=== PATIENT | female | born 1965 | race American Indian/Alaskan Native ===

== ENCOUNTER 2017-10-25 19:02 | Emergency (ER) | payer OTHER ==
[2017-10-25] MEDS ORDERED: NACL 0.9% 1000 ML 1,000 ML IV ONE ×2 (19:23→23:12)
[2017-10-25] MEDS ORDERED: ZOFRAN IV ONE ×2 (19:24→23:12)
[2017-10-25 19:36] LABS: Hematocrit 45.4 % (30.3-42.9); Mean Corpuscular HGB Conc 33 % (30-34); Mean Corpuscular Hemoglobin 29 pg (28-32); Mean Corpuscular Volume 87 fl (79-97); Platelet Count 273 K/mm3 (140-440); White Blood Count 8.4 K/mm3 (4.5-11.0)
[2017-10-25 19:53] LABS: Calcium 8.9 mg/dL (8.4-10.2); Chloride 102.8 mmol/L (98-107); Potassium 3.6 mmol/L (3.6-5.0)
[2017-10-25 20:05] LABS: Blastocytes % (Manual) 0 %
[2017-10-25 20:06] LABS: Anisocytosis 1+; Basophils % (Manual) 0 % (0.0-1.8); Eosinophils % (Manual) 0 % (0.0-4.3)
[2017-10-25 20:07] LABS: Diff Status Complete
[2017-10-25 22:08] LABS: Bacteria,Urine 1+ /HPF (Negative); Bilirubin,Urine NEG (Negative); Blood,Urine SM (Negative); Ketones,Urine TR mg/dL (Negative); Leukocyte Esterase,Urine NEG (Negative); Mucus,Urine 2+ /HPF; Nitrite,Urine NEG (Negative); Urobilinogen,Urine < 2.0 mg/dL (<2.0)
[2017-10-25] MEDS ORDERED: TORADOL IV ONE (23:12)
[2017-10-25] MEDS ORDERED: MORPHINE IV ONE (23:12)
--- NOTE | 2017-10-25 23:18 | Emergency Department Report ---
ED N/V/D HPI - General Chief complaint: Nausea/Vomiting/Diarrhea Stated complaint: VOMITING/DIARRHEA Time Seen by Provider: 10/25/17 23:08 Source: patient Mode of arrival: Ambulatory Limitations: No Limitations - History of Present Illness Initial comments: 52 yo female with n/v/diarrhea which began today. She had 3-4 episodes of vomiting and diarrhea at the same time. pt ate pork chops and vegetable medley last night cooked by her significant other and herself. She has a h/o LAP Band few years ago. MD complaint: nausea, vomiting, diarrhea, abdominal pain -: Sudden Description of Vomiting: food contents Description of Diarrhea: water Associated Abdominal Pain: Yes Location: diffuse Radiation: none Severity: moderate Pain Scale: 6 Quality: cramping Consistency: intermittent, now resolved Improves with: vomiting Worsens with: none Context: possible food poisoning, history of abdominal surg Associated Symptoms: nausea/vomiting - Related Data Home Medications Medication Instructions Recorded Confirmed Last Taken amLODIPine 10 mg PO DAILY 10/25/17 10/25/17 Unknown Previous Rx's Medication Instructions Recorded Last Taken Type Ondansetron [Zofran TAB] 8 mg PO Q8HR PRN #9 tablet 10/26/17 Unknown Rx metroNIDAZOLE [Flagyl] 500 mg PO Q8HR #21 tablet 10/26/17 Unknown Rx Allergies Allergy/AdvReac Type Severity Reaction Status Date / Time No Known Allergies Allergy Verified 10/25/17 23:14 ED Review of Systems ROS: Stated complaint: VOMITING/DIARRHEA Other details as noted in HPI Constitutional: denies: chills, fever Eyes: denies: eye pain, eye discharge, vision change ENT: denies: ear pain, throat pain Respiratory: denies: cough, shortness of breath, wheezing Cardiovascular: denies: chest pain, palpitations Endocrine: no symptoms reported Gastrointestinal: abdominal pain, nausea, diarrhea Genitourinary: denies: urgency, dysuria, discharge Musculoskeletal: denies: back pain, joint swelling, arthralgia Skin: denies: rash, lesions Neurological: denies: headache, weakness, paresthesias Psychiatric: denies: anxiety, depression Hematological/Lymphatic: denies: easy bleeding, easy bruising ED Past Medical Hx - Past Medical History Hx Hypertension: Yes - Surgical History Additional Surgical History: , LAP-BAND - Social History Smoking Status: Never Smoker Substance Use Type: None - Medications Home Medications: Home Medications Medication Instructions Recorded Confirmed Last Taken Type amLODIPine 10 mg PO DAILY 10/25/17 10/25/17 Unknown History Ondansetron [Zofran TAB] 8 mg PO Q8HR PRN #9 tablet 10/26/17 Unknown Rx metroNIDAZOLE [Flagyl] 500 mg PO Q8HR #21 tablet 10/26/17 Unknown Rx ED Physical Exam - General Limitations: No Limitations General appearance: alert, in no apparent distress - Head Head exam: Present: atraumatic, normocephalic - Eye Eye exam: Present: normal appearance, EOMI - ENT ENT exam: Present: mucous membranes moist - Neck Neck exam: Present: normal inspection, full ROM - Respiratory Respiratory exam: Present: normal lung sounds bilaterally. Absent: respiratory distress - Cardiovascular Cardiovascular Exam: Present: regular rate, normal rhythm. Absent: systolic murmur, diastolic murmur, rubs, gallop - GI/Abdominal GI/Abdominal exam: Present: soft, normal bowel sounds, hyperactive bowel sounds , mass (ruq over lap band). Absent: distended, tenderness, guarding, rebound, rigid - Rectal Rectal exam: Present: deferred - Extremities Exam Extremities exam: Present: normal inspection, full ROM - Back Exam Back exam: Present: normal inspection, full ROM - Neurological Exam Neurological exam: Present: alert, oriented X3, CN II-XII intact (grossly examined) - Psychiatric Psychiatric exam: Present: normal affect, normal mood - Skin Skin exam: Present: warm, dry, intact, normal color. Absent: rash ED Course Vital Signs 10/25/17 10/25/17 10/25/17 19:15 21:46 23:35 Temperature 99.6 F 99 F Pulse Rate 112 H 90 Respiratory 16 16 Rate Blood Pressure 146/105 Blood Pressure 178/106 [Right] O2 Sat by Pulse 98 97 Oximetry 10/26/17 10/26/17 00:05 00:35 Temperature Pulse Rate 89 Respiratory 16 16 Rate Blood Pressure Blood Pressure 143/88 [Right] O2 Sat by Pulse 100 Oximetry ED Medical Decision Making - Lab Data Result diagrams: 10/25/17 19:24 10/25/17 19:23 - Radiology Data Radiology results: report reviewed (ACUTE ABD SERIES: ENTEROCOLITIS) - Medical Decision Making HER LABS ARE RELATIVELY NORMAL AND ACUTE ABDOMINAL SERIES IS NEGATIVE FOR BOWEL OBSTRUCTION NOMAN WERNER D/C HER HOME WITH FOLLOW UP WITH HER DR. - Differential Diagnosis BOWEL OBSTRUCTION, GASTROENTERITIS, APPENDICITIS, COLITIS Critical care attestation.: If time is entered above; I have spent that time in minutes in the direct care of this critically ill patient, excluding procedure time. ED Disposition Clinical Impression: Enterocolitis Disposition: TO HOME OR SELFCARE Is pt being admited?: No Does the pt Need Aspirin: No Condition: Stable Instructions: Acute Diarrhea (ED), Acute Nausea and Vomiting (ED), Infectious Colitis (ED) Additional Instructions: RETURN TO THE ED FOR ANY WORSENING OF YOUR SYMPTOMS, PLEASE RETURN IN 6 HOURS FOR AN ABDOMEN CHECK. SEE YOUR DR IN 2 DAYS FOR A FOLLOW UP. PLEASE DRINK PLENTY OF FLUIDS Prescriptions: metroNIDAZOLE [Flagyl] 500 mg PO Q8HR #21 tablet Ondansetron [Zofran TAB] 8 mg PO Q8HR PRN #9 tablet PRN Reason: Nausea And Vomiting Referrals: PRIMARY CARE, [Primary Care Provider] - 3-5 Days Time of Disposition: 01:16
--- NOTE | 2017-10-25 23:46 | XRay Report ---
FINAL REPORT PROCEDURE: XR ABD SERIES W CXR 1V TECHNIQUE: Abdominal series complete, including supine and upright AP views of the abdomen and frontal chest. HISTORY: abd pain,n,v,diarrhea h/o lap band COMPARISON: No prior studies are available for comparison. FINDINGS: Heart: Normal. Mediastinum/Vessels: Normal. Lungs/Pleural space: Normal. Bowel gas pattern: Intestinal gas is distributed predominantly in nondistended colon. Air-fluid levels are noted in the colon... Masses or calcifications: None. Bony structures: No acute osseous abnormality. Other: No free intraperitoneal air. IMPRESSION: Air-fluid levels in nondistended colon most likely represent enterocolitis..
[2017-10-25 23:47] LABS: Alanine Aminotransferase 14 units/L (7-56); Albumin 4.2 g/dL (3.9-5); Albumin/Globulin Ratio 1.4 %; Alkaline Phosphatase 74 units/L (35-129); Bilirubin,Direct < 0.2 mg/dL (0-0.2); Bilirubin,Indirect 0.2 mg/dL; Lipase 24 units/L (13-60); Total Protein 7.1 g/dL (6.3-8.2)
[2017-10-26 00:36] VITALS: BP 143/88
== END 2017-10-26 01:45 | disposition home or self-care (01) ==
LOC: ED 19:02
DX: K52.9 Noninfective gastroenteritis and colitis, unspecified (principal); I10 Essential (primary) hypertension
CPT/HCPCS: 36415; 74022; 80048; 80074; 81001; 83690; 84703; 85007; 85025; 96361; 96374; 96375; 96376; 99284; J1885; J2270; J2405; J7030

== ENCOUNTER 2019-01-13 14:12 | Emergency (ER) | payer OTHER ==
[2019-01-13 14:24] VITALS: BP 190/118
[2019-01-13] MEDS ORDERED: ASPIRIN PO ONE (15:52)
--- NOTE | 2019-01-13 15:54 | Emergency Department Report ---
Blank Doc - Documentation Documentation: This is a 53 y.o. female that presents to the ER with chest pain. Patient sta jesus she woke up around 1100 this morning with a severe headache, dizziness, and chest pain. She took blood pressure medication and then came here for evaluation. States headache for several weeks which increased in intensity today. She reports chest pain to substernal chest, sharp pain that is intermittent. Ordered: labs Fast track for further evaluation.
[2019-01-13 16:09] LABS: Eosinophils # (Auto) 0.1 K/mm3 (0.0-0.4); Eosinophils % (Auto) 0.8 % (0.0-4.3); Monocytes # (Auto) 0.6 K/mm3 (0.0-0.8); Monocytes % (Auto) 8.8 % (0.0-7.3)
[2019-01-13 16:24] LABS: BUN/Creatinine Ratio 14; Blood Urea Nitrogen 15 mg/dL (7-17); Calcium 8.9 mg/dL (8.4-10.2); Hemolysis Index 14
[2019-01-13 16:33] LABS: Hemoglobin 14.5 gm/dl (10.1-14.3); Red Blood Count 4.98 M/mm3 (3.65-5.03)
[2019-01-13 16:34] LABS: Basophils % (Auto) 0.5 % (0.0-1.8); Hematocrit 43.8 % (30.3-42.9); Lymphocytes % (Auto) 28.9 % (13.4-35.0); Mean Corpuscular HGB Conc 33 % (30-34); Mean Corpuscular Volume 88 fl (79-97); Platelet Count 317 K/mm3 (140-440); Red Cell Distribution Width 15.8 % (13.2-15.2)
--- NOTE | 2019-01-13 18:07 | Emergency Department Report ---
ED General Adult HPI - General Chief complaint: Chest Pain Stated complaint: DIZZY/CHEST PAIN Time Seen by Provider: 01/13/19 15:50 Source: patient Mode of arrival: Ambulatory Limitations: No Limitations - History of Present Illness Initial comments: 53-year-old -Tong[place] female with past medical history of hypertension and obesity smgy department complaining of episodic chest pain associated with shortness of breath and occasional presyncope. Reports no coughing, no congestion, no hemoptysis, no hematemesis, no hematochezia. She reports no syncope. Has been having some episodes of spiking in her blood pressure ranging anywhere from the 180s to the 200s over the high 90s to the low all 110s. This most recent chest pain episode a reemerge around 11 AM today and has been coming off and on since that time, chest pain, has has improved since the onset, but the headache continues to linger. The headache is dull, throbbing, primarily to the occipitoparietal region on the right side associated with occasional blurred vision. Severity scale (0 -10): 5 Associated Symptoms: chest pain. denies: confusion, cough, fever/chills, loss of appetite, nausea/vomiting, seizure, shortness of breath Treatments Prior to Arrival: none - Related Data Home Medications Medication Instructions Recorded Confirmed Last Taken amLODIPine 10 mg PO DAILY 10/25/17 10/25/17 Unknown Previous Rx's Medication Instructions Recorded Last Taken Type Ondansetron (Nf) [Zofran TAB] 8 mg PO Q8HR PRN #9 tablet 10/26/17 Unknown Rx metroNIDAZOLE [Flagyl] 500 mg PO Q8HR #21 tablet 10/26/17 Unknown Rx Ketorolac [Toradol] 10 mg PO Q6H PRN #15 tablet 01/13/19 Unknown Rx Allergies Allergy/AdvReac Type Severity Reaction Status Date / Time No Known Allergies Allergy Verified 01/13/19 15:51 ED Review of Systems ROS: Stated complaint: DIZZY/CHEST PAIN Other details as noted in HPI Constitutional: denies: chills, fever Eyes: denies: eye pain, eye discharge, vision change ENT: denies: ear pain, throat pain Respiratory: denies: cough, shortness of breath, wheezing Cardiovascular: denies: chest pain, palpitations Endocrine: no symptoms reported Gastrointestinal: denies: abdominal pain, nausea, diarrhea Genitourinary: denies: urgency, dysuria, discharge Musculoskeletal: denies: back pain, joint swelling, arthralgia Skin: denies: rash, lesions Neurological: denies: headache, weakness, paresthesias Psychiatric: denies: anxiety, depression Hematological/Lymphatic: denies: easy bleeding, easy bruising ED Past Medical Hx - Past Medical History Previous Medical History?: Yes Hx Hypertension: Yes - Surgical History Past Surgical History?: Yes Additional Surgical History: , LAP-BAND - Social History Smoking Status: Current Every Day Smoker Substance Use Type: Alcohol - Medications Home Medications: Home Medications Medication Instructions Recorded Confirmed Last Taken Type amLODIPine 10 mg PO DAILY 10/25/17 10/25/17 Unknown History Ondansetron (Nf) [Zofran TAB] 8 mg PO Q8HR PRN #9 tablet 10/26/17 Unknown Rx metroNIDAZOLE [Flagyl] 500 mg PO Q8HR #21 tablet 10/26/17 Unknown Rx Ketorolac [Toradol] 10 mg PO Q6H PRN #15 tablet 01/13/19 Unknown Rx ED Physical Exam - General Limitations: No Limitations General appearance: alert, in no apparent distress - Head Head exam: Present: atraumatic, normocephalic - Eye Eye exam: Present: normal appearance, PERRL, EOMI Pupils: Present: normal accommodation - ENT ENT exam: Present: normal exam, normal orophraynx, mucous membranes moist, TM's normal bilaterally - Neck Neck exam: Present: normal inspection, full ROM. Absent: tenderness, meningismus, lymphadenopathy, thyromegaly - Respiratory Respiratory exam: Present: normal lung sounds bilaterally. Absent: respiratory distress, wheezes, rales, rhonchi, chest wall tenderness, accessory muscle use, decreased breath sounds, prolonged expiratory - Cardiovascular Cardiovascular Exam: Present: regular rate, normal rhythm, normal heart sounds. Absent: systolic murmur, diastolic murmur, rubs, gallop - GI/Abdominal GI/Abdominal exam: Present: soft, normal bowel sounds. Absent: distended, tenderness, guarding, hyperactive bowel sounds, hypoactive bowel sounds - Extremities Exam Extremities exam: Present: normal inspection, full ROM, normal capillary refill - Back Exam Back exam: Present: normal inspection - Neurological Exam Neurological exam: Present: alert, oriented X3, CN II-XII intact, other ( rhomberg results in swaying. ) - Psychiatric Psychiatric exam: Present: normal affect, normal mood - Skin Skin exam: Present: warm, dry, intact, normal color. Absent: rash ED Course Vital Signs 01/13/19 14:22 Temperature 98.2 F Pulse Rate 89 Respiratory 14 Rate Blood Pressure 190/118 [Right] O2 Sat by Pulse 98 Oximetry ED Medical Decision Making - Lab Data Result diagrams: 01/13/19 15:56 01/13/19 15:56 Critical care attestation.: If time is entered above; I have spent that time in minutes in the direct care of this critically ill patient, excluding procedure time. ED Disposition Clinical Impression: Chest pain, Cephalgia Disposition: - TO HOME OR SELFCARE Is pt being admited?: No Does the pt Need Aspirin: No Condition: Stable Instructions: Chest Pain (ED), Acute Headache (ED) Referrals: GUILLERMINA RIVERO MD [Primary Care Provider] - 3-5 Days [facility] [Provider Group] - 3-5 Days
--- NOTE | 2019-01-13 18:14 | XRay Report ---
FINAL REPORT EXAM: XR CHEST ROUTINE 2V HISTORY: chest pain TECHNIQUE: PA and lateral views of the chest PRIORS: CXR 10/25/2017 FINDINGS: Lines, tubes, and devices: N/A Lungs and pleura: Trachea is normal in position. Lungs are clear of infiltrate, pleural effusion, va scular congestion, or pneumothorax. No change. Cardiomediastinal silhouette: Cardiac and mediastinal silhouettes are unremarkable. Other: Bony structures are intact. IMPRESSION: No acute cardiopulmonary process seen. No change.
--- NOTE | 2019-01-13 19:17 | Cat Scan Report ---
FINAL REPORT EXAM: CT HEAD/BRAIN WO CON HISTORY: headache TECHNIQUE: Standard unenhanced CT of the head at 5.0 millimeter axial increments. PRIORS: None. FINDINGS: The ventricular system is normal in size and configuration. There is no evidence for parenchymal volu me loss. There is no evidence for mass lesion, mass effect, midline shift, acute intracranial hemorrhage, or a cute ischemia/ infarction. No evidence for acute skull fracture is seen. No abnormality in the overlying scalp soft tissues is seen. Visualized paranasal sinuses are clear. IMPRESSION: Negative CT of the head. No acute intracranial process noted.
[2019-01-13] MEDS ORDERED: NORCO 5/325 PO STA (21:25)
== END 2019-01-13 21:46 | disposition home or self-care (01) ==
LOC: ED 14:12
DX: R07.89 Other chest pain (principal); R51 Headache; I10 Essential (primary) hypertension; F17.200 Nicotine dependence, unspecified, uncomplicated; E66.9 Obesity, unspecified; Z68.33 Body mass index [BMI] 33.0-33.9, adult
CPT/HCPCS: 36415; 70450; 71046; 80048; 84484; 85025; 93005; 93010; 99285

== ENCOUNTER 2019-05-07 08:35 | Outpatient (CLI) | payer OTHER ==
--- NOTE | 2019-05-07 10:07 | Mammography Report ---
Screening mammogram: Prior exams apparently exist but the patient is unclear of their location. There is a heterogeneously dense fibroglandular pattern. The breast pattern on the left is unremarkable. In the upper outer right breast there is some architectural changes on both projections. No definite mass. The findings are not otherwise remarkable. CAD used. Impression: Right breast asymmetry. Recommendation: If prior exams cannot be obtained I would recommend this patient either have tomomammogram of the right breast or spot compression imaging and possible ultrasound. BI-RADS CATEGORY: 0 = Needs additional imaging evaluation ACR BI-RADS MAMMOGRAPHIC CODES: 0 = Needs additional imaging evaluation; 1 = Negative; 2 = Benign; 3 = Probably benign; 4 = Suspicious; 5 = Malignant; 6 = Known biopsy-proven malignancy COMMENT: 1. Dense breast tissue, i.e., adenosis, fibrocystic changes, etc., may obscure an underlying neoplasm. 2. Approximately 10% of cancers are not detected with mammography. 3. A negative mammography report should not delay biopsy if a clinically suspicious mass is present.
== END 2019-05-07 08:36 | disposition home or self-care (01) ==
LOC: MAMMO 08:35
PROVIDERS: ATTEND Internal Medicine
DX: Z12.31 Encounter for screening mammogram for malignant neoplasm of breast (principal); I10 Essential (primary) hypertension
CPT/HCPCS: 77067

== ENCOUNTER 2019-10-23 02:06 | Emergency (ER) | payer OTHER ==
[2019-10-23 02:14] VITALS: BP 190/125
[2019-10-23] MEDS ORDERED: cloNIDine 0.2 MG TAB ONE (02:24)
[2019-10-23] MEDS ORDERED: cloNIDine 0.2 MG TAB PO ONE (02:24)
[2019-10-23 02:56] LABS: Basophils % (Auto) 0.3 % (0.0-1.8); Eosinophils # (Auto) 0.1 K/mm3 (0.0-0.4); Eosinophils % (Auto) 1.2 % (0.0-4.3); Hematocrit 48.3 % (30.3-42.9); Hemoglobin 15.7 gm/dl (10.1-14.3); Lymphocytes # (Auto) 2.4 K/mm3 (1.2-5.4); Lymphocytes % (Auto) 28.7 % (13.4-35.0); Mean Corpuscular HGB Conc 33 % (30-34); Mean Corpuscular Volume 87 fl (79-97); Monocytes % (Auto) 12.3 % (0.0-7.3); Platelet Count 448 K/mm3 (140-440); Red Blood Count 5.53 M/mm3 (3.65-5.03); Red Cell Distribution Width 16.1 % (13.2-15.2)
[2019-10-23 04:08] LABS: Alanine Aminotransferase 13 units/L (7-56); BUN/Creatinine Ratio 12; Blood Urea Nitrogen 13 mg/dL (7-17); Calcium 8.8 mg/dL (8.4-10.2); Hemolysis Index 3
[2019-10-23] MEDS ORDERED: SODIUM CHLORIDE 0.9% 1000 ML 1,000 ML ONE (04:08)
[2019-10-23] MEDS ORDERED: ONDANSETRON 4 MG/2 ML INJ ONE (04:08)
[2019-10-23] MEDS ORDERED: ONDANSETRON 4 MG/2 ML INJ IV ONE (04:13)
[2019-10-23] MEDS ORDERED: SODIUM CHLORIDE 0.9% 1000 ML 1,000 ML IV ONE (04:13)
--- NOTE | 2019-10-23 04:24 | Emergency Department Report ---
Vomiting/Diarrhea - HPI Chief Complaint: Nausea/Vomiting/Diarrhea Stated Complaint: UPSET STOMACH, DIARRHEA, SWEATS, LUMP ON RECTUM Time Seen by Provider: 10/23/19 03:08 Duration: 5 Days Severity: mild Nausea/Vomiting Severity: None Diarrhea Severity: Moderate Pain Location: Generalized Pain Severity: None Symptoms: Yes Watery Diarrhea, Yes Able to Tolerate Fluids, Yes Recent Unusual Foods, No Bloody diarrhea, No Fever, No Recent Untreated Water, No Recent use of Antibiotics, No Family w/ Similar Symptoms, No Contacts w/ Similar Symptoms, No Rash, No Hematuria, No Recent URI Symptoms Other History: This is a 54-year-old female who presents to ED complaining of na usea vomiting and diarrhea that started Saturday of last week. Patient states she is aware of eating any unusual foods. Patient also states that diarrhea is watery loose since of last week. Patient admits a history of hypertension currently on medication. She denies abdominal pain, fever, chills, chest pain or shortness of breath. Denies any medical history of hepatitis liver disease or kidney disease. ED Review of Systems ROS: Stated complaint: UPSET STOMACH, DIARRHEA, SWEATS, LUMP ON RECTUM Other details as noted in HPI Comment: All other systems reviewed and negative ED Past Medical Hx - Past Medical History Previous Medical History?: Yes Hx Hypertension: Yes - Surgical History Past Surgical History?: Yes Additional Surgical History: , LAP-BAND - Social History Smoking Status: Never Smoker Substance Use Type: None - Medications Home Medications: Home Medications Medication Instructions Recorded Confirmed Last Taken Type amLODIPine 10 mg PO DAILY 10/25/17 10/25/17 Unknown History Ondansetron (Nf) [Zofran TAB] 8 mg PO Q8HR PRN #9 tablet 10/26/17 Unknown Rx metroNIDAZOLE [Flagyl] 500 mg PO Q8HR #21 tablet 10/26/17 Unknown Rx Ketorolac [Toradol] 10 mg PO Q6H PRN #15 tablet 01/13/19 Unknown Rx Hydrocortisone [Anucort-HC SUPPOS] 25 mg RC BID #30 supp.rect 10/23/19 Unknown Rx Hydrocortisone [Anusol-Hc 2.5% TOP 1 applic RC TID #1 cream..g. 10/23/19 Unknown Rx CREAM] Ondansetron [Zofran ODT TAB] 8 mg PO Q12HR #20 tab.rapdis 10/23/19 Unknown Rx Vomiting Diarrhea Exam - Exam General: Vital signs noted. No distress. Alert and acting appropriately. HEENT: Yes Moist Mucous Membranes, No Pharyngeal Erythema, No Pharyngeal Exudates, No Rhinorrhea, No Conjuctival Injection, No Frontal Tenderness, No Maxillary Tenderness Neck: No Adenopathy, No Rigidity Lungs: Yes Clear Lung Sounds, Yes Good Air Exchange, No Wheezes, No Stridor, No Cough, No Nasal Flaring, No Retractions, No Use of Accessory Muscles Heart exam: Regular: Yes, Murmur: No, Tachycardia: No Abdomen: Tenderness: No (nontender on all quadrants), Peritoneal Signs: No, Distention: No, Hyperactive Bowel sounds: No Skin exam: Rash: No, Edema: No, Normal turgor: Yes Neurologic: Alert and oriented, no deficits. Musculoskeletal: Unremarkable. Exam: External nonbleeding, nontender hemorrhoids noted on rectal exam, ED Course Vital Signs 10/23/19 10/23/19 02:11 02:29 Temperature 98.6 F Pulse Rate 102 H 102 H Respiratory 18 Rate Blood Pressure 190/125 190/125 O2 Sat by Pulse 87 Oximetry ED Medical Decision Making - Lab Data Result diagrams: 10/23/19 02:29 10/23/19 02:29 Laboratory Last Values WBC 8.3 K/mm3 (4.5-11.0) 10/23/19 02:29 RBC 5.53 M/mm3 (3.65-5.03) H 10/23/19 02:29 Hgb 15.7 gm/dl (10.1-14.3) H 10/23/19 02:29 Hct 48.3 % (30.3-42.9) H 10/23/19 02:29 MCV 87 fl (79-97) 10/23/19 02:29 MCH 28 pg (28-32) 10/23/19 02:29 MCHC 33 % (30-34) 10/23/19 02:29 RDW 16.1 % (13.2-15.2) H 10/23/19 02:29 Plt Count 448 K/mm3 (140-440) H 10/23/19 02:29 Lymph % (Auto) 28.7 % (13.4-35.0) 10/23/19 02:29 Nye % (Auto) 12.3 % (0.0-7.3) H 10/23/19 02:29 Eos % (Auto) 1.2 % (0.0-4.3) 10/23/19 02:29 Baso % (Auto) 0.3 % (0.0-1.8) 10/23/19 02:29 Lymph # 2.4 K/mm3 (1.2-5.4) 10/23/19 02:29 Nye # 1.0 K/mm3 (0.0-0.8) H 10/23/19 02:29 Eos # 0.1 K/mm3 (0.0-0.4) 10/23/19 02:29 Baso # 0.0 K/mm3 (0.0-0.1) 10/23/19 02:29 Seg Neutrophils % 57.5 % (40.0-70.0) 10/23/19 02:29 Seg Neutrophils # 4.8 K/mm3 (1.8-7.7) 10/23/19 02:29 Sodium 143 mmol/L (137-145) 10/23/19 02:29 Potassium 3.5 mmol/L (3.6-5.0) L 10/23/19 02:29 Chloride 109.7 mmol/L (98-107) H 10/23/19 02:29 Carbon Dioxide 24 mmol/L (22-30) 10/23/19 02:29 Anion Gap 13 mmol/L 10/23/19 02:29 BUN 13 mg/dL (7-17) 10/23/19 02:29 Creatinine 1.1 mg/dL (0.7-1.2) 10/23/19 02:29 Estimated GFR > 60 ml/min 10/23/19 02:29 BUN/Creatinine Ratio 12 % 10/23/19 02:29 Glucose 109 mg/dL (65-100) H 10/23/19 02:29 Calcium 8.8 mg/dL (8.4-10.2) 10/23/19 02:29 Total Bilirubin 0.20 mg/dL (0.1-1.2) 10/23/19 02:29 AST 14 units/L (5-40) 10/23/19 02:29 ALT 13 units/L (7-56) 10/23/19 02:29 Alkaline Phosphatase 111 units/L (35-129) 10/23/19 02:29 Total Protein 7.9 g/dL (6.3-8.2) 10/23/19 02:29 Albumin 4.0 g/dL (3.9-5) 10/23/19 02:29 Albumin/Globulin Ratio 1.0 % 10/23/19 02:29 Lipase 64 units/L (13-60) H 10/23/19 02:29 Urine Color Yellow (Yellow) 10/23/19 05:34 Urine Turbidity Clear (Clear) 10/23/19 05:34 Urine pH 5.0 (5.0-7.0) 10/23/19 05:34 Ur Specific [place] 1.017 (1.003-1.030) 10/23/19 05:34 Urine Protein <15 mg/dl mg/dL (Negative) 10/23/19 05:34 Urine Glucose (UA) Neg mg/dL (Negative) 10/23/19 05:34 Urine Ketones Neg mg/dL (Negative) 10/23/19 05:34 Urine Blood Neg (Negative) 10/23/19 05:34 Urine Nitrite Neg (Negative) 10/23/19 05:34 Urine Bilirubin Neg (Negative) 10/23/19 05:34 Urine Urobilinogen < 2.0 mg/dL (<2.0) 10/23/19 05:34 Ur Leukocyte Esterase Neg (Negative) 10/23/19 05:34 Urine WBC (Auto) 1.0 /HPF (0.0-6.0) 10/23/19 05:34 Urine RBC (Auto) 4.0 /HPF (0.0-6.0) 10/23/19 05:34 U Epithel Cells (Auto) 2.0 /HPF (0-13.0) 10/23/19 05:34 Urine Bacteria (Auto) 3+ /HPF (Negative) 10/23/19 05:34 Hyaline Casts 3 /LPF 10/23/19 05:34 Urine Mucus Few /HPF 10/23/19 05:34 - Medical Decision Making 54-year-old female presents with acute gastroenteritis. All labs are within normal limits. Lipase mildly elevated. This is most likely due to diarrhea Urinalysis positive for bacteria. Abdomen examination was nontender on all Quad Patient received 1 L of fluids, Toradol for pain and Zofran in the ED. Constipation to follow-up with primary care physician Discussed with patient to only have liquid diet for the next 2-3 days. sign signs are normal patient is in no acute distress. Patient reports feeling moderately better prior to discharge. I discussed the patient to return to ED if any worsening symptoms or new onset of symptoms. Critical care attestation.: If time is entered above; I have spent that time in minutes in the direct care of this critically ill patient, excluding procedure time. ED Disposition Clinical Impression: Acute gastroenteritis, Hemorrhoids Disposition: DC- TO HOME OR SELFCARE Is pt being admited?: No Does the pt Need Aspirin: No Condition: Stable Instructions: Hemorrhoids (ED), Gastroenteritis (ED) Additional Instructions: Make sure to follow up with the primary care physician as discussed. Take all your medications as you've been prescribed. If you have any worsening symptoms or develop new symptoms please return to ED immediately. Prescriptions: Hydrocortisone [Anucort-HC SUPPOS] 25 mg RC BID #30 supp.rect Hydrocortisone [Anusol-Hc 2.5% TOP CREAM] 1 applic RC TID #1 cream..g. Ondansetron [Zofran ODT TAB] 8 mg PO Q12HR #20 tab.salvador Referrals: PRIMARY CARE, [Primary Care Provider] - 3-5 Days [facility] [Outside] - 3-5 Days [facility] [Outside] - 3-5 Days [facility] [Provider Group] - 3-5 Days Forms: Accompanied Note, Work/School Release Form(ED) Time of Disposition: 06:29
[2019-10-23] MEDS ORDERED: KETOROLAC 30 MG/1 ML INJ IV ONE (05:40)
[2019-10-23 05:58] LABS: Bacteria,Urine 3+ /HPF (Negative); Bilirubin,Urine NEG (Negative); Blood,Urine NEG (Negative); Color,Urine Yellow (Yellow); Hyaline Casts,Urine 3 /LPF; Mucus,Urine FEW /HPF; Protein,Urine <15 mg/dL mg/dL (Negative); Urobilinogen,Urine < 2.0 mg/dL (<2.0)
[2019-10-23] MEDS ORDERED: cefTRIAXone/NS 1 GM/50 ML 1 GM/50 ML BAG IV ONE (06:19)
[2019-10-23] MEDS ORDERED: MORPHINE 2 MG/1 ML INJ IV ONE (06:43)
== END 2019-10-23 07:35 | disposition home or self-care (01) ==
LOC: ED 02:06
DX: K52.9 Noninfective gastroenteritis and colitis, unspecified (principal); K64.9 Unspecified hemorrhoids; I10 Essential (primary) hypertension
CPT/HCPCS: 36415; 80053; 81001; 83690; 85025; 96361; 96365; 96375; 99283; J0696; J1885; J2270; J2405; J7030

== ENCOUNTER 2020-01-16 14:11 | Emergency (ER) | payer OTHER ==
--- NOTE | 2020-01-16 15:38 | Emergency Department Report ---
ED General Adult HPI - General Chief complaint: Eye Problems Stated complaint: POSS PINK EYE Time Seen by Provider: 01/16/20 15:27 Source: patient Mode of arrival: Ambulatory Limitations: No Limitations - History of Present Illness Initial comments: Pt complains of right eye redness, drainage, and crusting shut x 2 days. States now spreading to her left eye. States mild pain at a 3/10 in severity. Denies eye trauma or vision changes. -: Sudden Severity scale (0 -10): 1 - Related Data Home Medications Medication Instructions Recorded Confirmed Last Taken amLODIPine 10 mg PO DAILY 10/25/17 10/25/17 Unknown Previous Rx's Medication Instructions Recorded Last Taken Type Ondansetron (Nf) [Zofran TAB] 8 mg PO Q8HR PRN #9 tablet 10/26/17 Unknown Rx metroNIDAZOLE [Flagyl] 500 mg PO Q8HR #21 tablet 10/26/17 Unknown Rx Ketorolac [Toradol] 10 mg PO Q6H PRN #15 tablet 01/13/19 Unknown Rx Hydrocortisone [Anucort-HC SUPPOS] 25 mg RC BID #30 supp.rect 10/23/19 Unknown Rx Hydrocortisone [Anusol-Hc 2.5% TOP 1 applic RC TID #1 cream..g. 10/23/19 Unknown Rx CREAM] Ondansetron [Zofran ODT TAB] 8 mg PO Q12HR #20 tab.rapdis 10/23/19 Unknown Rx Polymyxin B Sulf/Trimethoprim 1 drop OP Q3H 7 Days #1 drops 01/16/20 Unknown Rx [Polytrim Eye Drops] Allergies Allergy/AdvReac Type Severity Reaction Status Date / Time No Known Allergies Allergy Verified 01/13/19 15:51 ED Review of Systems ROS: Stated complaint: POSS PINK EYE Other details as noted in HPI Constitutional: denies: chills, fever Eyes: eye pain, eye discharge. denies: vision change Respiratory: denies: cough, shortness of breath Cardiovascular: denies: chest pain Endocrine: denies: excessive sweating Gastrointestinal: denies: nausea, vomiting Neurological: denies: headache, weakness, numbness, paresthesias Psychiatric: denies: auditory hallucinations ED Past Medical Hx - Past Medical History Previous Medical History?: Yes Hx Hypertension: Yes Additional medical history: gout - Surgical History Past Surgical History?: Yes Additional Surgical History: , LAP-BAND - Social History Smoking Status: Former Smoker Substance Use Type: Alcohol - Medications Home Medications: Home Medications Medication Instructions Recorded Confirmed Last Taken Type amLODIPine 10 mg PO DAILY 10/25/17 10/25/17 Unknown History Ondansetron (Nf) [Zofran TAB] 8 mg PO Q8HR PRN #9 tablet 10/26/17 Unknown Rx metroNIDAZOLE [Flagyl] 500 mg PO Q8HR #21 tablet 10/26/17 Unknown Rx Ketorolac [Toradol] 10 mg PO Q6H PRN #15 tablet 01/13/19 Unknown Rx Hydrocortisone [Anucort-HC SUPPOS] 25 mg RC BID #30 supp.rect 10/23/19 Unknown Rx Hydrocortisone [Anusol-Hc 2.5% TOP 1 applic RC TID #1 cream..g. 10/23/19 Unknown Rx CREAM] Ondansetron [Zofran ODT TAB] 8 mg PO Q12HR #20 tab.rapdis 10/23/19 Unknown Rx Polymyxin B Sulf/Trimethoprim 1 drop OP Q3H 7 Days #1 drops 01/16/20 Unknown Rx [Polytrim Eye Drops] ED Physical Exam - General Limitations: No Limitations General appearance: alert - Head Head exam: Present: atraumatic, normocephalic - Eye Eye exam: Present: PERRL, EOMI, conjunctival injection (moderated right, normal left eye). Absent: scleral icterus, periorbital swelling, periorbital tenderness - ENT ENT exam: Present: mucous membranes moist - Neck Neck exam: Present: normal inspection, full ROM - Respiratory Respiratory exam: Present: normal lung sounds bilaterally. Absent: respiratory distress - Cardiovascular Cardiovascular Exam: Present: regular rate, normal rhythm - Neurological Exam Neurological exam: Present: alert, oriented X3, normal gait - Psychiatric Psychiatric exam: Present: normal affect, normal mood - Skin Skin exam: Present: warm, dry, intact, normal color. Absent: rash ED Course Vital Signs 01/16/20 15:27 Temperature 98.7 F Pulse Rate 100 H Respiratory 18 Rate Blood Pressure 165/117 Blood Pressure 165/117 [Right] O2 Sat by Pulse 100 Oximetry ED Medical Decision Making - Medical Decision Making Pt here with conjunctivitis. Rx for polytrim given. BP noted to be elevated-pt states hx of of HTN and compliance with her BP meds. She denies any headache, dizziness, CP, SOB, numbness/tingling/weakness in her limbs, difficultly with speech, or confusion. She is well appearing. Pt instructed to check BP TID at home and return to the ED if her BP remains elevated or she begins to experience any neuro symptoms. Pt states understanding. Pt to f/u with her PCP in 3-5 days. Critical care attestation.: If time is entered above; I have spent that time in minutes in the direct care of this critically ill patient, excluding procedure time. ED Disposition Clinical Impression: Conjunctivitis, acute Qualifiers: Acute conjunctivitis type: bacterial Laterality: bilateral Qualified Code(s): H10.33 - Unspecified acute conjunctivitis, bilateral Disposition: - TO HOME OR SELFCARE Is pt being admited?: No Condition: Stable Instructions: Conjunctivitis (ED) Prescriptions: Polymyxin B Sulf/Trimethoprim [Polytrim Eye Drops] 1 drop OP Q3H 7 Days #1 drops Referrals: PRIMARY CARE, [Referring] - 3-5 Days
[2020-01-16 15:39] VITALS: BP 171/111
== END 2020-01-16 15:30 | disposition home or self-care (01) ==
LOC: ED 14:11
DX: H10.33 Unspecified acute conjunctivitis, bilateral (principal); I10 Essential (primary) hypertension; M10.9 Gout, unspecified; Z98.890 Other specified postprocedural states; Z87.891 Personal history of nicotine dependence; Z79.899 Other long term (current) drug therapy

== ENCOUNTER 2020-04-01 12:03 | Outpatient (CLI) | payer OTHER ==
--- NOTE | 2020-04-01 13:25 | Mammography Report ---
DIGITAL DIAGNOSTIC MAMMOGRAM WITH CAD, -- 04/01/2020 INDICATION: Patient presents as a callback from screening mammogram for evaluation of an area of poss ible distortion in the right breast. TECHNIQUE: Digital bilateral mammographic imaging was performed. Spot compression views were obtaine d. This examination was interpreted with the benefit of Computer-aided Detection analysis. COMPARISON: Prior mammogram 05/07/2019 FINDINGS: Breast Density: The breasts are heterogeneously dense, which may obscure small masses. There is no evidence of dominant mass, suspicious calcifications or architectural distortion in eithe r breast. The area of possible distortion in the right upper outer quadrant described on prior mammog ran does not persist on additional views. There are stable benign-appearing calcifications seen in th e left breast. IMPRESSION: 1. The area of possible distortion in the right upper outer quadrant does not persist on additional v iews, compatible with overlapping fibroglandular tissue. No suspicious mammographic abnormality ident ified. Follow up recommendation: Routine yearly BI-RADS Category 2: Benign. A "normal" or negative report should not discourage follow up or biopsy of a clinically significant f inding. A written summary of these findings will be mailed to the patient. The patient will be entered into a mammography reporting system which will generate a reminder letter for the patient's next appointmen t at the appropriate interval. According to the [employer], yearly mammograms are recommended starting at age 40 and continuing as long as a woman is in good health. Breast MRI is recommended for women with an jayshree roximately 20-25% or greater lifetime risk of breast cancer, including women with a strong family his tory of breast or ovarian cancer and women who have been treated for Hodgkin's disease. Signer Name: Dafne Wakefield MD Signed: 04/01/2020 1:20 PM Workstation Name: [id number]
== END 2020-04-01 12:04 | disposition home or self-care (01) ==
LOC: MAMMO 12:03
PROVIDERS: ATTEND Internal Medicine
DX: R92.8 Other abnormal and inconclusive findings on diagnostic imaging of breast (principal)
CPT/HCPCS: 77066